=== PATIENT | female | born 1975 | race Caucasian/White ===

== ENCOUNTER 2018-09-03 10:17 | Day surgery (SDC) | payer OTHER, SELFPAY ==
[2018-09-03] VITALS (11 sets, daily range): BP systolic 107–140; BP diastolic 46–99; PULSE 66–109; RESP 16–18; TEMP 36.4–37.2; O2SAT 92–100; BMI 34.0; BMI 34.2
[2018-09-03 10:42] LABS: Internal QC Validated? YES +Cl - CLEAR BKGD; Pregnancy, Urine Negative Negative
[2018-09-03 11:04] LABS: Hematocrit 38.7 % (37-47); Hemoglobin 12.7 g/dl (12.0-15.0); Mean Corp Hgb Conc 32.8 g/gl (32-36); Mean Corpuscular Volume 85.4 fL (81-99); Mean Platelet Vol. 9.3 fl (6.2-12.0); Platelet Count 235 K/mm3 (150-450); RBC Distribution Width CV 13.5 % (11.6-14.6); RBC Distribution Width SD 42.2 fl (35.1-43.9); Red Blood Count 4.53 M/mm3 (4.2-5.4); White Blood Count 6.2 K/mm3 (4.4-11.0)
[2018-09-03 11:06] LABS: Scan Indicated on CBC? Y/N NO
[2018-09-03 11:35] LABS: Bedside Glucose 89 mg/dL (70-110)
[2018-09-03] MEDS: Phenazopyridine 95 MG Tablet 190 MG PO (11:46)
[2018-09-03] MEDS: Celecoxib 200 MG Capsule 400 MG PO (11:46)
[2018-09-03] MEDS: Acetaminophen 500 MG Tablet 1000 MG PO (11:47)
[2018-09-03] MEDS: Scopolamine 1mg/72hr Patch 1 PATCH TRANSDERM. (11:47)
[2018-09-03] MEDS: Gabapentin 600 MG Tablet PO (11:47)
[2018-09-03] MEDS: Enoxaparin 40 MG/0.4 ML Syringe SC (11:50)
--- NOTE | 2018-09-03 13:25 | HYST_PTH ---
PATIENT: PAUL QUINTANA [place] [facility] [place][id number] AGE/SX: 42/F ROOM: RE09/03/[address]: Dr. Lilia Pillai, MDDOB: 1975 BED: DIS: 09/04/2018 SPEC #: [id number] RECD: 09/03/18 16:22 STATUS: JESSE TICO #: [id number] JACQUI: 09/03/18 13:[address]: Lilia Pillai DEPT: SURGICAL PATHOLOGY RECD BY: Pete Zuluaga ENTERED: 09/04/18 08:03 SP TYPE: HYSTERECT OTHR DR: No Primary Care Phys Tissues: Uterus, NOS Procedures: Special Stain Group II Mucicarmine Stain (control) Surgery Specimen Level V HEADER OPERATION: Laparoscopic total hysterectomy, bilateral salpingectomy PRE-OP DIAGNOSIS: Abnormal uterine bleeding TISSUE SUBMITTED: Uterus, cervix, bilateral fallopian tubes, left ovary MICROSCOPIC DIAGNOSIS Uterus, cervix, bilateral fallopian tubes, left ovary: Cervix - chronic cystic cervicitis. Endometrium - early secretory endometrium. Myometrium - intramural and cervical leiomyomas (3 cm in greatest dimension). - Focal adenomyosis. Bilateral fallopian tubes - no pathologic diagnosis. Left ovary - simple mucinous cystadenoma (6 cm in greatest dimension). See comment. COMMENT Mucin stain with matched control was also used in the evaluation of the specimen. Case has been reviewed in consultation with Dr. Winkler who concurs with the above diagnosis. IDC:AM MICROSCOPIC DESCRIPTION Slides are reviewed. GROSS DESCRIPTION Received in fixative is one container labeled with the patient's name and designated uterus, cervix, bilateral fallopian tubes, left ovary. The specimen consists of a hysterectomy specimen consisting of uterus with cervix, detached ovary with adjacent portion of fallopian tube without fimbrial end identified as left and detached right fallopian tube with fimbrial end and also detached portion of fimbrial end most likely belong to left fallopian tube. The uterus with cervix weighs 143 gm and measures 12 x 7 x 6 cm. The serosal surface anteriorly is focally ragged. The ectocervical mucosa is unremarkable. The external os is circular in contour. The endocervical canal measures up to 5.5 cm in length and the endocervical mucosa is smiley, glistening and unremarkable. Sections of the cervix reveal a smiley, nodular mass measuring 3 cm in greatest dimension. The endometrial cavity is narrow and measures 5 cm in length and up to 2 cm in width. The endometrium is smiley, glistening without any mass lesion and measures 0.1 cm in thickness. Sections of the uterine wall reveal multiple intramural nodular masses, the largest measuring 2.5 cm in greatest dimension. The uninvolved uterine wall measures up to 2.5 cm in thickness. Sections of the nodules reveal smiley whorled cut surfaces without areas of hemorrhage, necrosis and cystic degeneration. The right fallopian tube measures 4.5 cm in length and 0.6 cm in diameter. The fimbrial end is identified. Sections reveal unremarkable cut surfaces. The left fallopian tube measures 3 cm in length and 0.4 cm in diameter. It is focally adherent to the adjacent ovary. The detached fimbrial end measures 2 x 1 x 0.5 cm. The soft to cystic, previously partially opened ovary measures 6 x 4 x 2 cm. Sections show multiloculated cysts occupying almost entire ovary. No papillations are identified. The cyst wall measures 0.1 to 0.2 cm in thickness. Manufacturing Coordinator sections are submitted in 14 cassettes as follows: 1 - anterior cervix, 2 - posterior cervix, 3 & 4 - anterior uterine wall, 5 & 6 - posterior uterine wall, 7 - small intramural nodular masses, 8 - largest uterine intramural mass, 9 - cervical intramural mass, 10 - right fallopian tube, 11 - left fallopian tube and ovary, 12-14 - more sections left ovary. / BANDAR:jose 09/04/18 TC:1 CPT: 10937, 85233
[2018-09-03] MEDS: Lidocaine/D5W 2,000 MG/250 ML IV.SOLN 29.52 MG IV (13:40)
[2018-09-03] MEDS: Bupivacaine Mpf 0.5% 30 ML VIAL (14:45)
[2018-09-03] MEDS: Ondansetron 4 MG/2 ML Vial IV (15:53)
--- NOTE | 2018-09-03 15:53 | PCM.OPRPT ---
Report of Operation Date of Procedure: 09/03/18 Pre-Operative Diagnosis: AUB, Post-Operative Diagnosis: AUB, Left ovarian cyst Surgery/Procedure Performed:: TLH, LSO, Right Salpingectomy, Cystoscopy Description of Surgical Findings:: Large Left ovarian cyst, Uterus adherent to anterior abdominal wall. Right ovary normal. hides inspector: Zarina Angeles Type of Anesthesia:: General Specimen's removed: uterus, Cervix, Bilateral tubes, Left ovary and cyst Drains: eldridge Estimated Blood Loss (mL): 100 Fluids Replaced: 1500 Description of Procedure: Patient take to OR and prepped and draped in usual sterile fashion in dorsal lithotomy position with her arms tucked in a neurologically safe and neutral position. The uterus sounded to 13cm. The Vcare uterine manipulator was sutured into place at 3/9:00 position and eldridge were placed. Attention was turned to the abdomen. All port sites were infiltrated with .5% marcaine before the incisions were made. The anterior abdominal wall was tented up with towel clamps and using a direct entry approach a 5 mm supraumbilical port was placed. Intraperitoneal placement was confirmed with the laparoscope and the pneumoperitoneum was created. The patient was placed in Trendelenburg and 5 mm right and left lower quadrant ports were placed under direct visualization. Air seal rapid insufflator was used. The bowel was swept away. Right Ovary appeared normal. Left ovary with a large approx 7cm cyst. Uterus adherant to anterior abdominal wall. using the Monopolor hook the uterus was released from anterior abdominal wall. The mesosalpinx starting at fimbriated end were grasped, clamped, sealed and transected with the Ligasure on the right. The IP ligament was clamped, sealed and transected to remove the ovary on the right with the cyst intact. The round ligaments were divided. The anterior peritoneum was dissected down to create the bladder flap with blunt dissection and the LigaSure. The uterine arteries were isolated, clamped, sealed and cut. There was minimal back bleeding from the uterus. Straight bites on uterine artieries performed to drop them off the cuff. The Vcare was used as guide to create colpotomy using monopolar tip of ligasure. once specimen was removed attention was turned to vaginal portion. The specimen was handed off. The cuff was closed with interrupted 0-vicryl figure of 8 sutures. Cystoscopy was performed bilateral ureters were visualized with good efflux. bladder was intact. eldridge replaced and sponge stick placed in vagina. The pneumoperitoneum was recreated and the cuff and pedicles were hemostatic. Through the Supraumbilical port a 10mm endocatch bag was used to place the right tube/ovary/cyst- it was brought through the umbilical incision after it was ruptured with clear fluid present. Fam was placed over cuff and pedicles. The skin incisions were closed with skin glue and 3-0 monocryl in the port sites. The vaginal sweep was completed by me. Grafts/Implants Used: none Grafts/Implants Used: none - Complications none - Admit VTE Documentation VTE Present on Admission: Yes VTE Mechan Device Prophylaxis: SCD's VTE Pharm Prophylaxis ordered?: Yes
--- NOTE | 2018-09-03 16:14 | DCINST_ITS ---
Discharge Diet: No Restrictions Discharge Activity: Return to Normal Activity, May Not Drive - while taking narcotic pain medications., May Shower Return to work on:: 10/08/18 May shower in (days): 1 February resume sexual activity in: 6-8 weeks Lifting Restrictions: 20 Call your doctor if your incision/area has: Continuous Slow Oozing, Sudden Increased Bleeding, Increased Pain/ Swelling, Increased Redness, Foul Smelling Discharge Call your doctor if you observe: Fever of 101 or Higher, Inability to urinate, Inability to have a bowel movement, Using more than one pad per hour Cleanse incision/area with: - - DO NOT PICK OFF SKIN GLUE- MAY SHOWER, LET SOAP AND WATER RUN OVER INCISION SITES AND DAB DRY Allergies/Adverse Reactions: Allergies latex Allergy (Verified 08/31/18 12:42) Rash oxycodone [From Percocet] Allergy (Verified 08/31/18 12:42) Rash Medications to take at Discharge Docusate Sodium [Colace] 100 mg PO DAILY #30 capsule 09/03/18 Ibuprofen 600 mg PO 4X/DAY PRN PRN #60 tablet 09/03/18 SimETHICONE [Mylicon] 80 mg PO 4X/DAY #30 tablet 09/03/18 The following prescriptions were given: Docusate Sodium [Colace] 100 mg PO DAILY #30 capsule Ibuprofen 600 mg PO 4X/DAY PRN PRN #60 tablet PRN Reason: Pain SimETHICONE [Mylicon] 80 mg PO 4X/DAY #30 tablet Orders to be completed after discharge: Type & Screen Time Frame: 09/03/18, Location: None Selected Primary Care Physician: Care Physician,No Primary [Primary Care Provider] - Test Results: Test results from this visit will be discussed in further detail at your follow- up appointment, if applicable. Please Follow Up With: Lilia Pillai MD When: SCHEDULED IN 2 WEEKS
[2018-09-03] MEDS: Lactated Ringers 1,000 ML 75 ML IV (17:39)
[2018-09-03] MEDS: Ibuprofen 600 MG Tablet PO (23:07)
[2018-09-04 03:14] VITALS: BP 110/69; PULSE 73; RESP 18; TEMP 36.6; O2SAT 96
[2018-09-04] MEDS: Ibuprofen 600 MG Tablet PO (05:19)
--- NOTE | 2018-09-04 07:58 | PCM.PN.OB ---
Subjective: pt seen at bedside, doing well. pt reports no pain. denies CP, SOB, dizziness. pt reports voiding w/o difficulty. No vaginal bleeding. Pt tolerating regular diet. pt is ready for dc home. - Physical Exam General: Alert, Oriented x3 Abdomen: Soft, Non Tender, Non-Distended, - - incision sites dry and intact Extremities: No Calf Tenderness Vital Signs Temp Pulse Resp BP Pulse Ox 97.9 F 73 18 110/69 96 09/04/18 03:14 09/04/18 03:14 09/04/18 03:14 09/04/18 03:14 09/04/18 03:14 Oxygen Flow Rate (L/min) 6 Oxygen Delivery Method Room Air Weight: 99.2 kg Body Mass Index (BMI) 34.2 Intake and Output for Last 24 Hours 09/02/18 09/03/18 09/04/18 23:59 23:59 23:59 Intake Total 2983 / 2983 490 / 490 Output Total 1450 / 1450 900 / 900 Balance 1533 / 1533 -410 / -410 Laboratory Tests Past 24 Hrs 09/03/18 09/03/18 09/03/18 10:30 10:42 12:10 WBC 6.2 RBC 4.53 Hgb 12.7 Hct 38.7 MCV 85.4 MCH 28.0 MCHC 32.8 RDW 13.5 RDW Differential 42.2 Plt Count 235 MPV 9.3 Urine Test Negative Blood Type O POSITIVE Antibody Screen NEGATIVE POC Glucose 09/03/18 11:20 POC Glucose 89 Medical Necessity - Tobacco Use Smoking Status: Never smoker Assessment/Plan POD#1, s/p TLH, Right salpingectomy, LSO, cystoscopy- Doing well stayed for observation due to Late end time of operation and patient still waking up after anesthesia. 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
--- NOTE | 2018-09-04 08:01 | PN.OBGYN_ITS ---
Subjective: pt seen at bedside, doing well. pt reports no pain. denies CP, SOB, dizziness. pt reports voiding w/o difficulty. No vaginal bleeding. Pt tolerating regular diet. pt is ready for dc home. - Physical Exam General: Alert, Oriented x3 Abdomen: Soft, Non Tender, Non-Distended, - - incision sites dry and intact Extremities: No Calf Tenderness Vital Signs Temp Pulse Resp BP Pulse Ox 97.9 F 73 18 110/69 96 09/04/18 03:14 09/04/18 03:14 09/04/18 03:14 09/04/18 03:14 09/04/18 03:14 Oxygen Flow Rate (L/min) 6 Oxygen Delivery Method Room Air Weight: 99.2 kg Body Mass Index (BMI) 34.2 Intake and Output for Last 24 Hours 09/02/18 09/03/18 09/04/18 23:59 23:59 23:59 Intake Total 2983 / 2983 490 / 490 Output Total 1450 / 1450 900 / 900 Balance 1533 / 1533 -410 / -410 Laboratory Tests Past 24 Hrs 09/03/18 09/03/18 09/03/18 10:30 10:42 12:10 WBC 6.2 RBC 4.53 Hgb 12.7 Hct 38.7 MCV 85.4 MCH 28.0 MCHC 32.8 RDW 13.5 RDW Differential 42.2 Plt Count 235 MPV 9.3 Urine Test Negative Blood Type O POSITIVE Antibody Screen NEGATIVE POC Glucose 09/03/18 11:20 POC Glucose 89 Medical Necessity - Tobacco Use Smoking Status: Never smoker Assessment/Plan POD#1, s/p TLH, Right salpingectomy, LSO, cystoscopy- Doing well stayed for observation due to Late end time of operation and patient still waking up after anesthesia. 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
[2018-09-04 10:00] VITALS: BP 109/51; PULSE 78; RESP 18; TEMP 37.1; O2SAT 99
--- OUTSIDE RECORDS SUMMARY | 2018-10-29 12:09 | XMS RPT_ITS ---
:1975 Author Organization [facility] Care Team Providers Name Role Phone GLORIA MAJOR (ELOISA) Attending Unavailable GLORIA MAJOR (ASSISTANT RESTAURANT GENERAL MANAGER) Referring Unavailable ANA, GLORIA (ASSISTANT RESTAURANT GENERAL MANAGER) Referring Unavailable NEYHART PIMENTEL, TERE Attending Unavailable ANA, GLORIA (ASSISTANT RESTAURANT GENERAL MANAGER) Referring Unavailable MAJOR, GLORIA (ASSISTANT RESTAURANT GENERAL MANAGER) Referring Unavailable MAJORGLORIA CABALLERO (ASSISTANT RESTAURANT GENERAL MANAGER) Referring Unavailable NEYHART PIMENTEL, TERE Attending Unavailable NEYHART PIMENTEL, TERE Attending Unavailable NEYHART PIMENTEL, TERE Attending Unavailable NEYHART PIMENTEL, TERE Attending Unavailable Neyhart-Pimentel, Tere Attending Unavailable Neyhart-Pimentel, Tere Referring Unavailable Primay Care Physicia, No Primary Care Unavailable PROBLEMS PROBLEMS DATE TYPE CONDITION / CODE ATTENDING STATUS SOURCE 07/22/2018 Active Other abnormal and NA Active [facility] inconclusive [place] findings on Repository diagnostic imaging of breast / R92.8(ICD-10) 07/08/2018 Active Excessive and NA Active [facility] frequent [place] menstruation with Repository irregular cycle / N92.1(ICD-10) 07/08/2018 Active Encounter for NA Active [facility] screening [place] mammogram for Repository malignant neoplasm of breast / Z12.31(ICD-10) PROCEDURES PROCEDURES No Procedure Records FoundRESULTS RESULTS PROGRESS Observed: 09/16/2018 Status: COMPLETED Source: [place] 10:55 AM [facility] REPOSITORY HNO ID: [id number] Author: Tere Pimentel Service: (none) Author Type: Physician Type: Progress Notes Filed: 09/16/2018 11:56 AM Note Text: SUBJECTIVE: 42 year old female presents for 2 week post-op exam. Doing well- no fevers, vaginal bleeding, difficulty with bm or voiding. OBJECTIVE: Incision: Dry and intact, without redness- supraumbilical incision with slight erythema but no signs of infection. Abdomen: Soft, Non-tender and No palpable masses PLAN: RTO for 6 week check I have reviewed and updated past medical and surgical history, medications and allergies. Tere Pillai MD CNOV Observed: 09/16/2018 Status: COMPLETED Source: [place] 10:50 AM [facility] REPOSITORY Office Visit (WOOB) KIZZY BATES ([id number]) 1975 F Date Time Provider Department 09/16/18 10:50 AM TERE FERNANDEZ [place] During your visit today, we recorded the following information about you: Blood pressure Weight 120/80 97.1 kg Tere Pillai MD 09/16/2018 11:56 AM Signed SUBJECTIVE: 42 year old female presents for 2 week post-op exam. Doing well- no fevers, vaginal bleeding, difficulty with bm or voiding. OBJECTIVE: Incision: Dry and intact, without redness- supraumbilical incision with slight erythema but no signs of infection. Abdomen: Soft, Non-tender and No palpable masses PLAN: RTO for 6 week check I have reviewed and updated past medical and surgical history, medications and allergies. Tere Pillai MD Referring Provider: SELF [200] Allergies As of Date: 09/16/2018 Noted Allergy Reaction LATEX 04/25/2015 2 - Rash PERCOCET (OXYCODONE-ACETAMINOPHEN)04/25/2015 2 - Rash 11 - Vomiting Date Reviewed: 09/16/2018 Reviewed by: Kathrin Van Tuan Ma - Fully Assessed Reason for Visit: Post-Op Visit [1236] Primary Visit Diagnosis:Post-operative state [Z98.890] Prescriptions as of 09/16/2018 Sig: MISOPROSTOL 200 MCG TABLET Take two tablets PO night bef* Patient not taking: Reported on 09/11/2018 PHENAZOPYRIDINE 200 MG TABLET Take 1 tablet by mouth three * Problem List As Of Date 09/16/2018 Noted Resolved Constitutional obesity [E66.8] INVALID FOR* SVT (supraventricular tachycardia) (HCC) [I47.1]INVALID FOR* Disposition: Return in about 4 weeks (around 10/14/2018). Follow-up and Disposition History Recorded Letter Text Tere Pimentel MD [facility] [place], [place] [address] 09/16/2018 RE: Kizzy Bates : 1975 To Whom It May Concern: Kizzy has been under my care and may return to work with no restrictions on 10/12/2018. Sincerely, Tere Pimentel MD Encounter Status:Closed by TERE PIMENTEL MD on 09/16/18 Observed: 09/11/2018 Status: F Source: [place] URINE CULTURE 10:30 AM [facility] REPOSITORY Sp. Request/Comment: - Specimen received in preservative Culture Result - <10,000 CFU/ml Lactose positive gram negative bacilli --> ABNORMAL ALERT Insignificant colony count. No further workup. --> ABNORMAL ALERT >=100,000 CFU/ml Normal urogenital christen Performed By: #### URCUL #### [facility] [address] [place], [place] [address] PROGRESS Observed: 09/11/2018 Status: COMPLETED Source: [place] 10:23 AM [facility] REPOSITORY HNO ID: [id number] Author: Tere Pimentel Service: (none) Author Type: Physician Type: Progress Notes Filed: 09/11/2018 11:02 AM Note Text: Would you like a collection officer present for your visit today? No Bernice Albarado Ma PROGRESS Observed: 09/11/2018 Status: COMPLETED Source: [place] 10:12 [facility] REPOSITORY HNO ID: [id number] Author: Tere Pimentel Service: (none) Author Type: Physician Type: Progress Notes Filed: 09/11/2018 11:02 AM Note Text: SUBJECTIVE: 42 year old female presents for a post-op exam. Pt reports pain at infraumbilical incision site- no fevers, nausea or vomiting. Pt also reports mild dysuria. Scant pink vaginal discharge. Overall doing well. OBJECTIVE: Incision: Dry and intact, without redness- no induration. No signs of infection. Abdomen: Soft, No palpable masses and mild tenderness- appropriate Vaginal: yadira discharge, cuff intact PLAN: RTO 1 weeks, Prescription given Bactrim and pyridium given ?? UTI- culture sent. Increase PO fluids I have reviewed and updated past medical and surgical history, medications and allergies. Tere Pillai MD CNOV Observed: 09/11/2018 Status: COMPLETED Source: [place] 10:10 AM [facility] REPOSITORY Office Visit (WOOB) KIZZY BATES ([id number]) 1975 F Date Time Provider Department 09/11/18 10:10 AM TERE FERNANDEZ [place] During your visit today, we recorded the following information about you: Blood pressure Weight 108/68 97.9 kg Tere Pillai MD 09/11/2018 11:02 AM Signed SUBJECTIVE: 42 year old female presents for a post-op exam. Pt reports pain at infraumbilical incision site- no fevers, nausea or vomiting. Pt also reports mild dysuria. Scant pink vaginal discharge. Overall doing well. OBJECTIVE: Incision: Dry and intact, without redness- no induration. No signs of infection. Abdomen: Soft, No palpable masses and mild tenderness- appropriate Vaginal: yadira discharge, cuff intact PLAN: RTO 1 weeks, Prescription given Bactrim and pyridium given ?? UTI- culture sent. Increase PO fluids I have reviewed and updated past medical and surgical history, medications and allergies. MD Tere Ernandez MD 09/11/2018 11:02 AM Signed Would you like a collection officer present for your visit today? No Bernice Albarado Ma Referring Provider: SELF [200] Allergies As of Date: 09/11/2018 Noted Allergy Reaction LATEX 04/25/2015 2 - Rash PERCOCET (OXYCODONE-ACETAMINOPHEN)04/25/2015 2 - Rash 11 - Vomiting Date Reviewed: 09/11/2018 Reviewed by: Bernice Albarado Ma - Fully Assessed Primary Visit Diagnosis:Dysuria [R30.0] Other Visit Diagnosis:Post-operative state [Z98.890] Order(s):UA DIP, URINE (POC) [0734483] Order #: [id number]. #:[id number] URINE CULTURE [SQURCUL] Order #: [id number] phenazopyridine (PYRIDIUM) 200 mg tabletTake 1 tablet by mouth three times daily as needed.Disp: 6 tabletRfl: 0 sulfamethoxazole-trimethoprim (BACTRIM DS) 800-160 mg per tabletTake 1 tablet by mouth twice daily for 3 days. FOR 3 DAYS.Disp: 6 tabletRfl: 0 Prescriptions as of 09/11/2018 Sig: PHENAZOPYRIDINE 200 MG TABLET Take 1 tablet by mouth three * SULFAMETHOXAZOLE 800 MG-TRIME* Take 1 tablet by mouth twice * MISOPROSTOL 200 MCG TABLET Take two tablets PO night bef* Patient not taking: Reported on 09/11/2018 Problem List As Of Date 09/11/2018 Noted Resolved Constitutional obesity [E66.8] INVALID FOR* SVT (supraventricular tachycardia) ([facility]) [I47.1]INVALID FOR* Prescriptions ordered this encounter Disp Refills Start End PHENAZOPYRIDINE 200 MG TABLET 6 ta* 0 09/11/2018 Route: ORAL Sig: Take 1 tablet by mouth three times daily as needed. SULFAMETHOXAZOLE 800 MG-TRIMETHOPRIM* 6 ta* 0 09/11/2018 09/14/2018 Route: ORAL Sig: Take 1 tablet by mouth twice daily for 3 days. FOR 3 DAYS. Encounter Status:Closed by TERE PIMENTEL MD on 09/11/18 DISCHARGE INSTRUCTION Observed: 09/03/2018 Status: F Source: [place] 4:14 PM [facility] REPOSITORY [facility] Medical Records Department [address] [place] [address] Instructions for Home/Discharge Instructions 09/03/18 1613 MR#: [id number] Acct: [id number] Name: KIZZY BATES Rep #: [id number] : 1975 42 From: Tere Pimentel MD PCP: Care Physician, No Primary Status: REG SDC Discharge Diet: No Restrictions Discharge Activity: Return to Normal Activity, May Not Drive - while taking narcotic pain medications., May Shower Return to work on:: 10/08/18 May shower in (days): 1 May resume sexual activity in: 6-8 weeks Lifting Restrictions: 20 Call your doctor if your incision/area has: Continuous Slow Oozing, Sudden Increased Bleeding, Increased Pain/ Swelling, Increased Redness, Foul Smelling Discharge Call your doctor if you observe: Fever of 101 or Higher, Inability to urinate, Inability to have a bowel movement, Using more than one pad per hour Cleanse incision/area with: - - DO NOT PICK OFF SKIN GLUE- MAY SHOWER, LET SOAP AND WATER RUN OVER INCISION SITES AND DAB DRY Allergies/Adverse Reactions: Allergies latex Allergy (Verified 08/31/18 12:42) Rash oxycodone [From Percocet] Allergy (Verified 08/31/18 12:42) Rash Medications to take at Discharge Docusate Sodium [Colace] 100 mg PO DAILY #30 capsule 09/03/18 Ibuprofen 600 mg PO 4X/DAY PRN PRN #60 tablet 09/03/18 SimETHICONE [Mylicon] 80 mg PO 4X/DAY #30 tablet 09/03/18 The following prescriptions were given: Docusate Sodium [Colace] 100 mg PO DAILY #30 capsule Ibuprofen 600 mg PO 4X/DAY PRN PRN #60 tablet PRN Reason: Pain SimETHICONE [Mylicon] 80 mg PO 4X/DAY #30 tablet Orders to be completed after discharge: Type AND Screen Time Frame: 09/03/18, Location: None Selected Primary Care Physician: Care Physician,No Primary [Primary Care Provider] - Test Results: Test results from this visit will be discussed in further detail at your follow-up appointment, if applicable. Please Follow Up With: Tere Pillai MD When: SCHEDULED IN 2 WEEKS 09/03/18 1614 <Electronically signed by Tere Pimentel MD> Date Tere Pillai MD CC: No Primary Care Physician OPERATIVE REPORT Observed: 09/03/2018 Status: F Source: [place] 4:01 PM [facility] REPOSITORY [facility] Medical Records Department [address] [place] [address] [place] [address] Operative Report 09/03/18 1553 MR#: [id number] Acct: [id number] Name: KIZZY BATES Rep #: [id number] : 1975 42 From: Tere Pimentel MD PCP: Care Physician, No Primary Status: REG [facility] Y Location: [place] [address] Report of Operation Date of Procedure: 09/03/18 Pre-Operative Diagnosis: AUB, Post-Operative Diagnosis: AUB, Left ovarian cyst Surgery/Procedure Performed:: TLH, LSO, Right Salpingectomy, Cystoscopy Description of Surgical Findings:: Large Left ovarian cyst, Uterus adherent to anterior abdominal wall. Right ovary normal. press loader: Zarina Angeles Type of Anesthesia:: General Specimen's removed: uterus, Cervix, Bilateral tubes, Left ovary and cyst Drains: eldridge Estimated Blood Loss (mL): 100 Fluids Replaced: 1500 Description of Procedure: Patient take to OR and prepped and draped in usual sterile fashion in dorsal lithotomy position with her arms tucked in a neurologically safe and neutral position. The uterus sounded to 13cm. The Vcare uterine manipulator was sutured into place at 3/9:00 position and eldridge were placed. Attention was turned to the abdomen. All port sites were infiltrated with .5% marcaine before the incisions were made. The anterior abdominal wall was tented up with towel clamps and using a direct entry approach a 5 mm supraumbilical port was placed. Intraperitoneal placement was confirmed with the laparoscope and the pneumoperitoneum was created. The patient was placed in Trendelenburg and 5 mm right and left lower quadrant ports were placed under direct visualization. Air seal rapid insufflator was used. The bowel was swept away. Right Ovary appeared normal. Left ovary with a large approx 7cm cyst. Uterus adherant to anterior abdominal wall. using the Monopolor hook the uterus was released from anterior abdominal wall. The mesosalpinx starting at fimbriated end were grasped, clamped, sealed and transected with the Ligasure on the right. The IP ligament was clamped, sealed and transected to remove the ovary on the right with the cyst intact. The round ligaments were divided. The anterior peritoneum was dissected down to create the bladder flap with blunt dissection and the LigaSure. The uterine arteries were isolated, clamped, sealed and cut. There was minimal back bleeding from the uterus. Straight bites on uterine artieries performed to drop them off the cuff. The Vcare was used as guide to create colpotomy using monopolar tip of ligasure. once specimen was removed attention was turned to vaginal portion. The specimen was handed off. The cuff was closed with interrupted 0-vicryl figure of 8 sutures. Cystoscopy was performed bilateral ureters were visualized with good efflux. bladder was intact. eldridge replaced and sponge stick placed in vagina. The pneumoperitoneum was recreated and the cuff and pedicles were hemostatic. Through the Supraumbilical port a 10mm endocatch bag was used to place the right tube/ovary/cyst- it was brought through the umbilical incision after it was ruptured with clear fluid present. Fam was placed over cuff and pedicles. The skin incisions were closed with skin glue and 3-0 monocryl in the port sites. The vaginal sweep was completed by me. Grafts/Implants Used: none Grafts/Implants Used: none - Complications none - Admit VTE Documentation VTE Present on Admission: Yes VTE Mechan Device Prophylaxis: SCD's VTE Pharm Prophylaxis ordered?: Yes 09/03/18 4697 <Electronically signed by Tere Pimentel MD> Date Tere Pillai MD CC: No Primary Care Physician; Tere Pillai MD Signed HYSTERECTOMY SPECIMEN Observed: 09/03/2018 Status: F Source: [place] 1:25 PM [facility] REPOSITORY Patient: KIZZY BATES : 1975 (42/F) Acct Num: [id number] Phys: Tere Pillai MD Unit Num: [id number] Loc: [facility] Specimen: [id number] Received: 09/03/181621 Spec Type: HYSTERECT TISSUES 1 TISSUES: Uterus, NOS COMMENT Mucin stain with matched control was also used in the evaluation of the specimen. Case has been reviewed in consultation with Dr. Winkler who concurs with the above diagnosis. IDC:AM GROSS DESCRIPTION Received in fixative is one container labeled with the patient's name and designated uterus, cervix, bilateral fallopian tubes, left ovary. The specimen consists of a hysterectomy specimen consisting of uterus with cervix, detached ovary with adjacent portion of fallopian tube without fimbrial end identified as left and detached right fallopian tube with fimbrial end and also detached portion of fimbrial end most likely belong to left fallopian tube. The uterus with cervix weighs 143 gm and measures 12 x 7 x 6 cm. The serosal surface anteriorly is focally ragged. The ectocervical mucosa is unremarkable. The external os is circular in contour. The endocervical canal measures up to 5.5 cm in length and the endocervical mucosa is smiley, glistening and unremarkable. Sections of the cervix reveal a smiley, nodular mass measuring 3 cm in greatest dimension. The endometrial cavity is narrow and measures 5 cm in length and up to 2 cm in width. The endometrium is smiley, glistening without any mass lesion and measures 0.1 cm in thickness. Sections of the uterine wall reveal multiple intramural nodular masses, the largest measuring 2.5 cm in greatest dimension. The uninvolved uterine wall measures up to 2.5 cm in thickness. Sections of the nodules reveal smiley whorled cut surfaces without areas of hemorrhage, necrosis and cystic degeneration. The right fallopian tube measures 4.5 cm in length and 0.6 cm in diameter. The fimbrial end is identified. Sections reveal unremarkable cut surfaces. The left fallopian tube measures 3 cm in length and 0.4 cm in diameter. It is focally adherent to the adjacent ovary. The detached fimbrial end measures 2 x 1 x 0.5 cm. The soft to cystic, previously partially opened ovary measures 6 x 4 x 2 cm. Sections show multiloculated cysts occupying almost entire ovary. No papillations are identified. The cyst wall measures 0.1 to 0.2 cm in thickness. Desktop Engineer sections are submitted in 14 cassettes as follows: 1 - anterior cervix, 2 - posterior cervix, 3 AND 4 - anterior uterine wall, 5 AND 6 - posterior uterine wall, 7 - small intramural nodular masses, 8 - largest uterine intramural mass, 9 - cervical intramural mass, 10 - right fallopian tube, 11 - left fallopian tube and ovary, 12-14 - more sections left ovary. / BANDAR:jose 09/04/18 TC:1 CPT: 69443, 39819 HEADER OPERATION: Laparoscopic total hysterectomy, bilateral salpingectomy PRE-OP DIAGNOSIS: Abnormal uterine bleeding TISSUE SUBMITTED: Uterus, cervix, bilateral fallopian tubes, left ovary MICROSCOPIC DESCRIPTION Slides are reviewed. MICROSCOPIC DIAGNOSIS Uterus, cervix, bilateral fallopian tubes, left ovary: Cervix - chronic cystic cervicitis. Endometrium - early secretory endometrium. Myometrium - intramural and cervical leiomyomas (3 cm in greatest dimension). - Focal adenomyosis. Bilateral fallopian tubes - no pathologic diagnosis. Left ovary - simple mucinous cystadenoma (6 cm in greatest dimension). See comment. Signed David John 09/07/18 <signature on file> Performed By: #### PHYST #### [facility] [address] [place], [place], [id number] TYPE AND SCREEN Collected: 09/03/2018 Status: F Source: [place] 12:10 PM [facility] REPOSITORY Order Comment: Reason for Type AND Screen/Red Cells: SURGERY Surgery Date: 09/03/18 Time: 1242 Type of Surgery: HYSTERECTOMY TYPE CODE TESTS RESULT OUT OF RANGE REFERENCE UNITS LAB B10.0800 O Normal BLOOD TYPE GEL POSITIVE LAB B100.4000 Normal Antibody NEGATIVE Screen Performed By: #### B101.7450 #### [facility] [address] [facility]. [place], [place], [id number] BEDSIDE GLUCOSE Collected: 09/03/2018 Status: F Source: [place] 11:20 AM [facility] REPOSITORY TYPE CODE TESTS RESULT OUT OF RANGE REFERENCE UNITS LAB L501.080 70-110 mg/dL Normal BEDSIDE GLU 89 Result Comment: MANAGEMENT OF PATIENT CARE PER NURSING PROTOCOL Performed By: #### L501.080 #### [facility] Point of Care [address] [facility] [address] [place], [place] [id number] CBC-COMPLETE BLOOD CNT Collected: 09/03/2018 Status: F Source: [place] NO DIFF 10:42 AM [facility] REPOSITORY Order Comment: Reason for Laboratory Test PRE OP TYPE CODE TESTS RESULT OUT OF RANGE REFERENCE UNITS LAB L100.1000 4.4-11.0 K/mm3 Normal WBC 6.2 LAB L100.1200 4.2-5.4 M/mm3 Normal RBC 4.53 LAB L100.1300 12.0-15.0 g/dl Normal HGB 12.7 LAB L100.1400 37-47 % Normal HCT 38.7 LAB L100.1500 81-99 fL Normal MCV 85.4 LAB L100.1600 27.0-32.0 pg Normal MCH 28.0 LAB L100.1700 32-36 g/gl Normal MCHC 32.8 LAB L100.1810 11.6-14.6 % Normal RDW CV 13.5 LAB L100.1820 35.1-43.9 fl Normal RDW SD 42.2 LAB L100.1900 150-450 K/mm3 Normal PLT 235 LAB L100.2000 6.2-12.0 fl Normal MPV 9.3 Performed By: #### L100.0500 #### [facility] [address] [facility] [address]. [place], [place], [id number] ,URINE Collected: 09/03/2018 Status: F Source: [place] 10:30 AM [facility] REPOSITORY Order Comment: Reason for Laboratory Test PRE OP TYPE CODE TESTS RESULT OUT OF REFERENCE UNITS RANGE LAB L400.8000 Negative Normal HCGUQUAL Negative Result Comment: Very dilute urine specimens, as indicated by a low specific gravity, may not contain office machines sales representative levels of hCG. If is still suspected, a first morning urine specimen should be collected 48 hours later and tested. Performed By: #### L400.7600 #### [facility] [address] [place], [address] SURGICAL PATHOLOGY Observed: 08/14/2018 Status: F Source: [place] 12:15 PM [facility] [place] REPOSITORY Specimen originated from [facility] Specimen #: [id number] Submitting Physician: TERE PIMENTEL MD FINAL DIAGNOSIS Endometrium, biopsy - Proliferative endometrium and fragments of benign endocervical epithelium. P 08/17/2018 Maggie Sterling M.D. (Electronic Signature) SPECIMEN SUBMITTED A: ENDOMETRIAL, BIOPSY CLINICAL DATA abnormal uterine bleeding GROSS DESCRIPTION A. Received in formalin are multiple smiley, soft feathery segments of tissue aggregating to 2.0 x 1.5 x 0.3 cm. Totally submitted in one cassette. Gross examination performed at [facility], [address] [place] [address] 08/15/2018 1:08:08 AM Date of Report: 08/17/2018 Date of Procedure: 08/14/2018 Date of Receipt: 08/14/2018 Submitted by: TERE PIMENTEL MD Location: [facility] Diagnostic interpretation performed at [facility], [facility] [place] [address]. HISTORY PHYSICAL Observed: 08/14/2018 Status: COMPLETED Source: [place] 12:13 PM [facility] REPOSITORY HNO ID: [id number] Author: Tere Pimentel Service: (none) Author Type: Physician Type: HANDP Filed: 08/14/2018 12:19 PM Note Text: Kizzy Bates is a 42 year old female who presents for AUB. Pt reports since getting tubal ligation done about two years ago her menses are irregular, painful and heavy. Pt reports will pass large clots. Will have to change protection less than every hour at some times. Pt reports feels tired and exhausted with menses. Pt reports also has pain with intercourse sometimes. Pt wanted to try MIRENA however cost was too much. Pt declines other hormonal options at this time. Pt would like to proceed with hysterectomy. PAST MEDICAL HISTORY Diagnosis Date - Leg fracture, left - Obesity - SVT (supraventricular tachycardia) (HCC) PAST SURGICAL HISTORY Procedure Laterality Date - CC ABLATION SVT PAT - DELIVERY ONLY 1998 , low transverse - DELIVERY ONLY 2007 , low transverse - TREAT LOWER LEG FRACTURE - TUBAL LIGATION HX 2014 laparoscopic FAMILY HISTORY Problem Relation Age of Onset - Breast Cancer Mother and Uterine - Diabetes Father - Cancer Maternal Grandmother Lung and Brain - COPD Maternal Grandmother Social History Marital status: Spouse name: Loyd Years of education: Number of children: 2 Occupational History 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 Allergies As of Date: 08/14/2018 Allergen Noted Reaction LATEX 04/25/2015 Rash PERCOCET [OXYCODONE-ACETAMINOPHEN]04/25/2015 Rash and Vomiting Fully Assessed 08/14/2018 REVIEW OF SYSTEMS Abdomen: no pain Bladder: no dysuria .. Expanded ROS: GENERAL: No weight loss, malaise or fevers Allergies and current medication updated:Yes EXAM: BP 112/66 Wt 216 lb (98.0kg) LMP 08/07/2018 GENERAL: pleasant, female in no apparent distress HEENT: Normocephalic and atraumatic NECK: full range of motion DERMATOLOGY: Normal, without lesions, non-icteric and non-hirsute CARDIAC: regular rate and rhythm CHEST: Normal inspiratory effort ABDOMEN: soft, non-tender and no masses PELVIC: external genitalia normal, normal Bartholin's glands, urethra, Wakeeney's glands, no vulvar lesions, no cervical lesions, good vaginal support, physiologic discharge present, normal appearing perineal body and perianal region NEURO: alert and oriented x3,exam grossly non-focal EXTREMITIES: normal Overall impression: uterus enlarged at 12.9cm, endometrial thickness 11.1mm. The endometrium appears heterogenous which can be seen in Adenomyosis there is a small 3.1cm intramural fibroid in lower segment of uterus. Right ovary appears normal left ovary not visualized no free fluid. Follow- up: f/u as clinically indicated. _ Indication: Menorrhagia. _ History: Last menstrual period: 07/08/2018. 2th day of cycle. Gynecological History: Contraception: sterilization. _ Gynecological Ultrasonography: Uterus: normal, axial. Size: Longitudinal 129 mm. Anterio- posterior 48 mm. Transverse 53 mm. Volume: 171.8 ml. Fibroids: Fibroid 1: Size: 24 mm x 22 mm x 31 mm. Type: posterior. Position: lower ?uterine segment. Endometrium: endometrial cavity could not be seen clearly. Endometrium thickness total: 11.3 mm. Right Ovary: normal. Visible. Morphology: normal morphology. Right Ovary size: 22 mm x 15 mm x 19 mm. Volume: 3.3 ml. Left Ovary: subvisualized. Method: transvaginal ultrasound, transabdominal ultrasound, color Doppler, 2 D, 3 D. View: suboptimal - the uterus was not seen clearly because of its axial position. Performed by:Nell Lam RDMS Read by:Tere Jiménez MD ASSESSMENT AND PLAN: Encounter Diagnosis ICD-10-CM 1. Abnormal uterine bleeding (AUB) N93.9 ENDOMETRIAL BIOPSY SURGICAL PATHOLOGY 2. Pre-op testing Z01.818 HCG QUAL UR B/O 3. Surgical procedure reviewed with patient. TLH, Bilateral salpingectomy, Cysto reviewed- DECLINES hormones and can't afford MIRENA IUD. Pt is not good ABLATION candidate. Pt has been counseled on risks/benefits and alternatives of surgery including but not limited to anesthesia, bleeding, infection, injury to pelvic structures including bowel, bladder, ureters and vessels. Pt wishes to proceed with surgery at this time. CONSENT obtained ERAS PROTOCOL reviewed and orders signed. Pt declines Rx for narcotics after procedure. Tere Pillai MD PROGRESS Observed: 08/14/2018 Status: COMPLETED Source: [place] 10:14 AM [facility] REPOSITORY [facility] ID: [id number] Author: Tere Pimentel Service: (none) Author Type: Physician Type: Progress Notes Filed: 08/14/2018 12:19 PM Note Text: Custom Harvester offered: Patient declines. Kizzy Bates is a 42 year old female who presents today for an endometrial biopsy for abnormal uterine bleeding. test: negative UNIVERSAL PROTOCOL / SAFETY CHECKLIST Procedure to be performed: EMB Sign in Communication: Completed Time Out: Team Confirms the Correct Patient, Correct Procedure, Correct Site and Site Marking, Correct Position (if applicable), Prep and Dry Time (if applicable). Time: Affirmation of Time Out: YES Sign Out Discussion: Completed PROCEDURE: EXTERNAL GENITALIA: Normal in appearance without lesions VAGINA: Normal in appearance without lesions BIOPSY: Speculum placed into the vagina with excellent visualization of the cervix. Cervix cleaned with betadine. Anterior lip of cervix grasped with single toothed tenaculum. Uterus sounded to 9 cm. Pipelle inserted into the uterus without difficulty and endometrial biopsy obtained. Specimen labeled and sent to pathology. Hemostasis achieved. Procedure Summary: Patient tolerated procedure well. ASSESSMENT: abnormal uterine bleeding PLAN: Specimens labeled and sent to Pathology. Will notify patient of results in 1-2 weeks. Tere Pillai MD CNOV Observed: 08/14/2018 Status: COMPLETED Source: [place] 10:10 AM [facility] REPOSITORY Office Visit (WOOB) KIZZY BATES ([id number]) 1975 F Date Time Provider Department 08/14/18 10:10 AM TERE FERNANDEZ [place] During your visit today, we recorded the following information about you: Blood pressure Weight Last Period 112/66 98 kg 08/07/18 Tere Pillai MD 08/14/2018 12:19 PM Signed Custom Harvester offered: Patient declines. Kizzy M Jana is a 42 year old female who presents today for an endometrial biopsy for abnormal uterine bleeding. test: negative UNIVERSAL PROTOCOL / SAFETY CHECKLIST Procedure to be performed: EMB Sign in Communication: Completed Time Out: Team Confirms the Correct Patient, Correct Procedure, Correct Site and Site Marking, Correct Position (if applicable), Prep and Dry Time (if applicable). Time: Affirmation of Time Out: YES Sign Out Discussion: Completed PROCEDURE: EXTERNAL GENITALIA: Normal in appearance without lesions VAGINA: Normal in appearance without lesions BIOPSY: Speculum placed into the vagina with excellent visualization of the cervix. Cervix cleaned with betadine. Anterior lip of cervix grasped with single toothed tenaculum. Uterus sounded to 9 cm. Pipelle inserted into the uterus without difficulty and endometrial biopsy obtained. Specimen labeled and sent to pathology. Hemostasis achieved. Procedure Summary: Patient tolerated procedure well. ASSESSMENT: abnormal uterine bleeding PLAN: Specimens labeled and sent to Pathology. Will notify patient of results in 1-2 weeks. MD Kathrin Ernandez Van Tuan Ma 08/14/2018 10:15 AM Signed YOUR RECOVERY After your biopsy you may have: ? Vaginal bleeding (less than a normal menstrual period) ? Mild cramping Do NOT put anything in the vagina for 1 week after your endometrial biopsy. This includes: ? tampons ? douches ? and refraining from having sexual intercourse If you have any discomfort, you may take an over the counter pain medication (motrin, advil, ibuprofen, tylenol, etc). If this does not relieve your discomfort, contact the office. It is okay to wear a sanitary pad until the discharge and spotting stops. RISKS Although problems seldom occur with endometrial biopsies, there can be some complications. You may feel faint during and shortly after the procedure as well as have some bleeding after the procedure. There is also a risk of infection after the procedure. These complications are rare and can be easily treated. You should contact you doctor is you have any of the following: ? Heavy bleeding (more than your normal period) ? Bleeding with clots ? Severe abdominal pain ? Fever (more than 100.4F) ? Foul smelling vaginal discharge RESULTS We will have the results of your biopsy in 1-2 weeks. If you do not hear the results of your biopsy after 2 weeks, please contact the office for the results. If you have any additional questions or concerns please do not hesitate to contact the office. Tere Pillai MD 08/14/2018 12:19 PM Signed Kizzy Bates is a 42 year old female who presents for AUB. Pt reports since getting tubal ligation done about two years ago her menses are irregular, painful and heavy. Pt reports will pass large clots. Will have to change protection less than every hour at some times. Pt reports feels tired and exhausted with menses. Pt reports also has pain with intercourse sometimes. Pt wanted to try MIRENA however cost was too much. Pt declines other hormonal options at this time. Pt would like to proceed with hysterectomy. 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 Allergies As of Date: 08/14/2018 Allergen Noted Reaction LATEX 04/25/2015 Rash PERCOCET [OXYCODONE-ACETAMINOPHEN]04/25/2015 Rash and Vomiting Fully Assessed 08/14/2018 REVIEW OF SYSTEMS Abdomen: no pain Bladder: no dysuria .. Expanded ROS: GENERAL: No weight loss, malaise or fevers Allergies and current medication updated:Yes EXAM: BP 112/66 Wt 216 lb (98.0kg) LMP 08/07/2018 GENERAL: pleasant, female in no apparent distress HEENT: Normocephalic and atraumatic NECK: full range of motion DERMATOLOGY: Normal, without lesions, non-icteric and non-hirsute CARDIAC: regular rate and rhythm CHEST: Normal inspiratory effort ABDOMEN: soft, non-tender and no masses PELVIC: external genitalia normal, normal Bartholin's glands, urethra, Wakeeney's glands, no vulvar lesions, no cervical lesions, good vaginal support, physiologic discharge present, normal appearing perineal body and perianal region NEURO: alert and oriented x3,exam grossly non-focal EXTREMITIES: normal Overall impression: uterus enlarged at 12.9cm, endometrial thickness 11.1mm. The endometrium appears heterogenous which can be seen in Adenomyosis there is a small 3.1cm intramural fibroid in lower segment of uterus. Right ovary appears normal left ovary not visualized no free fluid. Follow- up: f/u as clinically indicated. Indication: Menorrhagia. History: Last menstrual period: 07/08/2018. 2th day of cycle. Gynecological History: Contraception: sterilization. Gynecological Ultrasonography: Uterus: normal, axial. Size: Longitudinal 129 mm. Anterio- posterior 48 mm. Transverse 53 mm. Volume: 171.8 ml. Fibroids: Fibroid 1: Size: 24 mm x 22 mm x 31 mm. Type: posterior. Position: lower ?uterine segment. Endometrium: endometrial cavity could not be seen clearly. Endometrium thickness total: 11.3 mm. Right Ovary: normal. Visible. Morphology: normal morphology. Right Ovary size: 22 mm x 15 mm x 19 mm. Volume: 3.3 ml. Left Ovary: subvisualized. Method: transvaginal ultrasound, transabdominal ultrasound, color Doppler, 2 D, 3 D. View: suboptimal - the uterus was not seen clearly because of its axial position. Performed by:Nell aLm RDMS Read by:Tere Jiménez MD ASSESSMENT AND PLAN: Encounter Diagnosis ICD-10-CM 1. Abnormal uterine bleeding (AUB) N93.9 ENDOMETRIAL BIOPSY SURGICAL PATHOLOGY 2. Pre-op testing Z01.818 HCG QUAL UR B/O 3. Surgical procedure reviewed with patient. TLH, Bilateral salpingectomy, Cysto reviewed- DECLINES hormones and can't afford MIRENA IUD. Pt is not good ABLATION candidate. Pt has been counseled on risks/benefits and alternatives of surgery including but not limited to anesthesia, bleeding, infection, injury to pelvic structures including bowel, bladder, ureters and vessels. Pt wishes to proceed with surgery at this time. CONSENT obtained ERAS PROTOCOL reviewed and orders signed. Pt declines Rx for narcotics after procedure. Tere Pillai MD Referring Provider: SELF [[id number]] Allergies As of Date: 08/14/2018 Noted Allergy Reaction LATEX 04/25/2015 2 - Rash PERCOCET (OXYCODONE-ACETAMINOPHEN)04/25/2015 2 - Rash 11 - Vomiting Date Reviewed: 08/14/2018 Reviewed by: Kathrin Vigil Ma - Fully Assessed Reason for Visit: Endometrial Biopsy [7501] Primary Visit Diagnosis:Abnormal uterine bleeding (AUB) [N93.9] Other Visit Diagnoses:Intramural leiomyoma of uterus [D25.1] Pre-op testing [Z01.818] Order(s):HCG QUAL UR B/O [[id number]] Order #: [id number] ENDOMETRIAL BIOPSY [[id number]] Order #: [id number] SURGICAL PATHOLOGY [[id number]] Order #: [id number] Prescriptions as of 08/14/2018 Sig: MISOPROSTOL 200 MCG TABLET Take two tablets PO night bef* Problem List As Of Date 08/14/2018 Noted Resolved Constitutional obesity [E66.8] INVALID FOR* SVT (supraventricular tachycardia) ([facility]) [I47.1]INVALID FOR* Other instructions from your clinician: YOUR RECOVERY After your biopsy you may have: ? Vaginal bleeding (less than a normal menstrual period) ? Mild cramping Do NOT put anything in the vagina for 1 week after your endometrial biopsy. This includes: ? tampons ? douches ? and refraining from having sexual intercourse If you have any discomfort, you may take an over the counter pain medication (motrin, advil, ibuprofen, tylenol, etc). If this does not relieve your discomfort, contact the office. It is okay to wear a sanitary pad until the discharge and spotting stops. RISKS Although problems seldom occur with endometrial biopsies, there can be some complications. You may feel faint during and shortly after the procedure as well as have some bleeding after the procedure. There is also a risk of infection after the procedure. These complications are rare and can be easily treated. You should contact you doctor is you have any of the following: ? Heavy bleeding (more than your normal period) ? Bleeding with clots ? Severe abdominal pain ? Fever (more than 100.4F) ? Foul smelling vaginal discharge RESULTS We will have the results of your biopsy in 1-2 weeks. If you do not hear the results of your biopsy after 2 weeks, please contact the office for the results. If you have any additional questions or concerns please do not hesitate to contact the office. Encounter Status:Closed by TERE PIMENTEL MD on 08/14/18 PROGRESS Observed: 07/22/2018 Status: COMPLETED Source: [place] 11:28 AM [facility] REPOSITORY [facility] ID: [id number] Author: Tere Pimentel Service: (none) Author Type: Physician Type: Progress Notes Filed: 07/22/2018 1:07 PM Note Text: Kizzy Bates is a 42 year old female who presents for discussion or heavy menses. Pt reports since getting tubal ligation done about two years ago her menses are irregular, painful and heavy. Pt reports will pass large clots. Will have to change protection less than every hour at some times. Pt reports feels tired and exhausted with menses. Pt reports also has pain with intercourse sometimes. Pt reports used mirena previously with good results however last time she tried to get one it was denied. Pt reports she would like to try that again. Pt declines OCPs, depo or other hormonal options. 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 No current facility-administered medications for this visit. Allergies As of Date: 07/22/2018 Allergen Noted Reaction LATEX 04/25/2015 Rash PERCOCET [OXYCODONE-ACETAMINOPHEN]04/25/2015 Rash and Vomiting Fully Assessed 07/08/2018 REVIEW OF SYSTEMS Abdomen: cramping with menses. No other concerns Bladder: no dysuria .. Expanded ROS: Negative Fever Allergies and current medication updated:Yes EXAM: BP 112/78 Wt 216 lb (98.0kg) LMP 07/08/2018 GENERAL: pleasant, female in no apparent distress HEENT: Normocephalic, atraumatic and mucus membranes moist NECK: full range of motion DERMATOLOGY: Normal, without lesions, non-icteric and non-hirsute ABDOMEN: soft, non-tender and no masses PELVIC: external genitalia normal, normal Bartholin's glands, urethra, Wakeeney's glands, no vulvar lesions, normal appearing perineal body and perianal region BIMANUAL: anteverted, uterus top normal size, no adnexal masses and Moderate tenderness NEURO: alert and oriented x3,exam grossly non-focal EXTREMITIES: normal ASSESSMENT AND PLAN: Encounter Diagnosis ICD-10-CM 1. Abnormal uterine bleeding (AUB) N93.9 ENDOMETRIAL BIOPSY 2. Enlarged uterus N85.2 3. Intramural leiomyoma of uterus D25.1 4. Dysmenorrhea N94.6 5. Deep dyspareunia N94.12 6. Previous ultrasound was reviewed with patient- suspect adenomyosis- not good ablation candidate. Would prefer MIRENA IUD since she had good success previously vs Hysterectomy with bilateral salpingectomy. I reviewed TLH in detail with patient including all risks and benefits. Pt would like to proceed with hysterectomy if MIRENA is not covered by insurance- she declines all other forms of hormonal therapy. 7. Will do EMB in 2 weeks. 8. OR booking form turned in - will tentatively schedule for TLH, Bilateral salpingectomy and cysto FTFC >25 min with more than 50% of this time spent counseling the patient. Tere Pillai MD CNOV Observed: 07/22/2018 Status: COMPLETED Source: [place] 11:20 AM [facility] REPOSITORY Office Visit (WOOB) KIZZY BATES ([id number]) 1975 F Date Time Provider Department 07/22/18 11:20 AM TERE FERNANDEZ During your visit today, we recorded the following information about you: Blood pressure Weight Last Period 112/78 98 kg 07/08/18 Tere Pillai MD 07/22/2018 1:07 PM Signed Kizzy Bates is a 42 year old female who presents for discussion or heavy menses. Pt reports since getting tubal ligation done about two years ago her menses are irregular, painful and heavy. Pt reports will pass large clots. Will have to change protection less than every hour at some times. Pt reports feels tired and exhausted with menses. Pt reports also has pain with intercourse sometimes. Pt reports used mirena previously with good results however last time she tried to get one it was denied. Pt reports she would like to try that again. Pt declines OCPs, depo or other hormonal options. 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 No current facility-administered medications for this visit. Allergies As of Date: 07/22/2018 Allergen Noted Reaction LATEX 04/25/2015 Rash PERCOCET [OXYCODONE-ACETAMINOPHEN]04/25/2015 Rash and Vomiting Fully Assessed 07/08/2018 REVIEW OF SYSTEMS Abdomen: cramping with menses. No other concerns Bladder: no dysuria .. Expanded ROS: Negative Fever Allergies and current medication updated:Yes EXAM: BP 112/78 Wt 216 lb (98.0kg) LMP 07/08/2018 GENERAL: pleasant, female in no apparent distress HEENT: Normocephalic, atraumatic and mucus membranes moist NECK: full range of motion DERMATOLOGY: Normal, without lesions, non-icteric and non-hirsute ABDOMEN: soft, non-tender and no masses PELVIC: external genitalia normal, normal Bartholin's glands, urethra, Wakeeney's glands, no vulvar lesions, normal appearing perineal body and perianal region BIMANUAL: anteverted, uterus top normal size, no adnexal masses and Moderate tenderness NEURO: alert and oriented x3,exam grossly non-focal EXTREMITIES: normal ASSESSMENT AND PLAN: Encounter Diagnosis ICD-10-CM 1. Abnormal uterine bleeding (AUB) N93.9 ENDOMETRIAL BIOPSY 2. Enlarged uterus N85.2 3. Intramural leiomyoma of uterus D25.1 4. Dysmenorrhea N94.6 5. Deep dyspareunia N94.12 6. Previous ultrasound was reviewed with patient- suspect adenomyosis- not good ablation candidate. Would prefer MIRENA IUD since she had good success previously vs Hysterectomy with bilateral salpingectomy. I reviewed TLH in detail with patient including all risks and benefits. Pt would like to proceed with hysterectomy if MIRENA is not covered by insurance- she declines all other forms of hormonal therapy. 7. Will do EMB in 2 weeks. 8. OR booking form turned in - will tentatively schedule for TLH, Bilateral salpingectomy and cysto FTFC >25 min with more than 50% of this time spent counseling the patient. Tere Pillai MD Referring Provider: SELF [200] Allergies As of Date: 07/22/2018 Noted Allergy Reaction LATEX 04/25/2015 2 - Rash PERCOCET (OXYCODONE-ACETAMINOPHEN)04/25/2015 2 - Rash 11 - Vomiting Date Reviewed: 07/22/2018 Reviewed by: Kathrin Vigil Ma - Fully Assessed Reason for Visit: Follow Up [171] Reason For Visit History Recorded Primary Visit Diagnosis:Abnormal uterine bleeding (AUB) [N93.9] Other Visit Diagnoses:Enlarged uterus [N85.2] Intramural leiomyoma of uterus [D25.1] Dysmenorrhea [N94.6] Deep dyspareunia [N94.12] Order(s):miSOPROStol (CYTOTEC) 200 mcg tabletTake two tablets PO night before procedure and two tablets morning of procedureDisp: 4 tabletRfl: 0 ENDOMETRIAL BIOPSY [[id number]] Order #: [id number] Prescriptions as of 07/22/2018 Sig: MISOPROSTOL 200 MCG TABLET Take two tablets PO night bef* Problem List As Of Date 07/22/2018 Noted Resolved Constitutional obesity [E66.8] INVALID FOR* SVT (supraventricular tachycardia) (HCC) [I47.1]INVALID FOR* Prescriptions ordered this encounter Disp Refills Start End MISOPROSTOL 200 MCG TABLET 4 ta* 0 07/22/2018 Sig: Take two tablets PO night before procedure and two tablets morning of procedure Disposition: Return in about 2 weeks (around 08/05/2018) for emb with DM. Follow-up and Disposition History Recorded Encounter Status:Closed by TERE PIMENTEL MD on 07/22/18 PROGRESS Observed: 07/22/2018 Status: COMPLETED Source: [place] 11:12 AM [facility] REPOSITORY [facility] ID: [id number] Author: Gillian Ford Rdms Service: (none) Author Type: (none) Type: Progress Notes Filed: 07/22/2018 11:12 AM Note Text: Radiology Service Progress Note PATIENT NAME: Kizzy Bates DATE OF SERVICE: July 22, 2018 TIME: 11:12 AM PATIENT IDENTITY VERIFICATION COMPLETED USING TWO (2) METHODS: Patient confirmed name verbally and Date of . PATIENT GENDER DATA: Male PATIENT RELEVANT IMPLANT DATA REVIEWED: Not Applicable RADIOLOGY DEPARTMENT: Ultrasound PERIPHERAL IV DATA: Not applicable SIGNED BY: Gillian Ford Rdms July 22, 2018 11:12 AM CNCO Observed: 07/22/2018 Status: COMPLETED Source: [place] 11:11 AM [facility] REPOSITORY [facility] ID: [id number] Author: Mammography Coordinator Service: (none) Author Type: Physician Type: Letter Filed: 07/23/2018 11:31 PM Note Text: July 22, 2018 PID: [id number] Kizzy Bates [address] [place] [address] Dear Ms. Bates, Your recent breast imaging examination performed on 07/22/2018 showed an area that we believe is probably benign (not cancer). A six month follow-up is recommended to ensure your breast health. Please call [phone] to schedule an appointment for these tests if you have not already done so. Early detection of cancer is very important. We also understand recommendations regarding breast cancer screening are controversial. Please discuss with your primary care provider which strategy is best for you and whether a mammogram is right for you. Your breast images and report will be kept on file here as part of your permanent medical record and are available for your continuing care. Thank you for allowing us to help in meeting your health care needs. Sincerely, Dr. George Interpreting Radiologist [facility] (# mo Follow-up) CNCO Observed: 07/22/2018 Status: COMPLETED Source: [place] 11:10 AM [facility] REPOSITORY HNO ID: [id number] Author: Mammography Coordinator Service: (none) Author Type: Physician Type: Letter Filed: 07/23/2018 11:31 PM Note Text: July 22, 2018 PID: [id number] Kizzy Kirklandshaw [address] [place] [address] Dear Ms. Bates, Your recent breast imaging examination performed on 07/22/2018 showed an area that we believe is probably benign (not cancer). A six month follow-up is recommended to ensure your breast health. Please call [phone] to schedule an appointment for these tests if you have not already done so. Early detection of cancer is very important. We also understand recommendations regarding breast cancer screening are controversial. Please discuss with your primary care provider which strategy is best for you and whether a mammogram is right for you. Your breast images and report will be kept on file here as part of your permanent medical record and are available for your continuing care. Thank you for allowing us to help in meeting your health care needs. Sincerely, Dr. George Interpreting Radiologist [facility] (# mo Follow-up) [facility] Proxly BREAST LTD Observed: 07/22/2018 Status: F Source: [facility] 10:57 AM [facility] REPOSITORY * * *Final Report* * * DATE OF EXAM: Jul 22 2018 10:57AM STAN 0593 - [facility] US BREAST LTD LT / PROCEDURE REASON: Abnormal mammogram * * * * Physician Interpretation * * * * #[id number] - [facility] US BREAST LTD LT ULTRASOUND OF LEFT BREAST: 07/22/2018 HISTORY: Abnormal Mammogram. RESULT: No prior exams were available for comparison. Real-time ultrasound of the left breast was performed. No abnormalities were seen sonographically in the left breast. IMPRESSION: NEGATIVE There is no sonographic evidence of malignancy. Siobhan rangel/tory:07/22/2018 11:12:17 Medical Lab Tech Instructor: Mulu Bradley [facility] Ultrasound BI-RADS: 1 Negative Multiple national specialty organizations have released breast cancer screening guidelines for women at average risk for developing breast cancer - guidelines that are based on both evidence and opinion, yet differ on when to start and how often to screen for breast cancer. With representation from Breast Imaging, Internal Medicine, Women's Health, Family Medicine, and Medical/Surgical Oncology, the [facility] has carefully reviewed the data and reached the following consensus: 1) All women should engage in shared decision-making with their providers to decide when to start and how often to screen; 2) All women should have the opportunity to start screening mammography at age 40; 3) For women ages 45-55, we recommend annual screening mammograms; 4) For women ages 55 and over, we support both the transition from an annual to a biennial interval if this aligns more with patient's values and preferences, or continuation with annual screening; 5) All women should discuss with their providers when to stop screening mammograms. Adjunct Professor Of English: Tory Transcribe Date/Time: Jul 22 2018 10:51A Dictated by : SIOBHAN GEORGE MD This examination was interpreted and the report reviewed and electronically signed by: SIOBHAN GEORGE MD on Jul 22 2018 11:12AM EST [id number] [facility] US BREAST LTD Observed: 07/22/2018 Status: F Source: [facility] 10:52 AM [facility] REPOSITORY * * *Final Report* * * DATE OF EXAM: Jul 22 2018 10:52AM WRU 0594 - [facility] US BREAST LTD RT / PROCEDURE REASON: Abnormal mammogram * * * * Physician Interpretation * * * * #[id number] - [facility] US BREAST LTD RT ULTRASOUND OF RIGHT BREAST: 07/22/2018 HISTORY: Abnormal Mammogram. RESULT: No prior exams were available for comparison. Real-time ultrasound of the right breast was performed. There is a 1.1 cm x 0.7 cm x 0.8 cm lobulated mass with a circumscribed margin in the right breast at 10 o'clock posterior depth. This lobulated mass is hypoechoic with a well-defined boundary and internal echoes. This correlates with mammography findings. IMPRESSION: PROBABLY BENIGN - SHORT TERM INTERVAL FOLLOW-UP RECOMMENDED - FOLLOW-UP RECOMMENDED The 1.1 cm x 0.7 cm x 0.8 cm lobulated mass in the right breast resembles a lymph node and is probably benign. A follow-up mammogram and an ultrasound in 6 months is recommended to demonstrate stability. Siobhan rangel/tory:07/22/2018 11:11:42 Medical Lab Tech Instructor: Gillian Ford [facility] letter sent: # Mo FU Ultrasound BI-RADS: 3 Probably benign finding - short term interval follow-up recommended Multiple national specialty organizations have released breast cancer screening guidelines for women at average risk for developing breast cancer - guidelines that are based on both evidence and opinion, yet differ on when to start and how often to screen for breast cancer. With representation from Breast Imaging, Internal Medicine, Women's Health, Family Medicine, and Medical/Surgical Oncology, the [facility] has carefully reviewed the data and reached the following consensus: 1) All women should engage in shared decision-making with their providers to decide when to start and how often to screen; 2) All women should have the opportunity to start screening mammography at age 40; 3) For women ages 45-55, we recommend annual screening mammograms; 4) For women ages 55 and over, we support both the transition from an annual to a biennial interval if this aligns more with patient's values and preferences, or continuation with annual screening; 5) All women should discuss with their providers when to stop screening mammograms. Adjunct Professor Of English: Tory Transcribe Date/Time: Jul 22 2018 10:34A Dictated by : SIOBHAN GEORGE MD This examination was interpreted and the report reviewed and electronically signed by: SIOBHAN GEORGE MD on Jul 22 2018 11:11AM EST [id number] PROGRESS Observed: 07/22/2018 Status: COMPLETED Source: [place] 10:28 AM [facility] REPOSITORY O ID: [id number] Author: Silvia Melton Service: (none) Author Type: (none) Type: Progress Notes Filed: 07/22/2018 10:28 AM Note Text: Radiology Service Progress Note PATIENT NAME: Kizzy Bates DATE OF SERVICE: July 22, 2018 TIME: 10:28 AM PATIENT IDENTITY VERIFICATION COMPLETED USING TWO (2) METHODS: Patient confirmed name verbally and Date of . PATIENT GENDER DATA: Female. status: : No status: NO. PATIENT RELEVANT IMPLANT DATA REVIEWED: Not Applicable RADIOLOGY DEPARTMENT: [facility] BILATERAL DIAGNOSTIC MAMMOGRAM PERIPHERAL IV DATA: Not applicable SIGNED BY: Silvia Melton July 22, 2018 10:28 AM [facility] DIAGNOSTIC BLAKE Observed: 07/22/2018 Status: F Source: [place] 10:14 AM [facility] REPOSITORY * * *Final Report* * * DATE OF EXAM: Jul 22 2018 10:14AM [facility] 0620 - [facility] DIAGNOSTIC BLAKE / PROCEDURE REASON: Abnormal mammogram * * * * Physician Interpretation * * * * RESULT: #[id number] - [facility] DIAGNOSTIC BLAKE BILATERAL DIGITAL DIAGNOSTIC MAMMOGRAM WITH CAD: 07/22/2018 HISTORY: Bilateral Diagnostic Mammogram;Call Back/Abnormal Mammogram. RESULT: TECHNIQUE: The study was acquired using full field digital technology and interpreted from soft copy. Current study was also evaluated with a Computer Aided Detection (CAD). Comparison is made to exam dated: 07/08/2018 mammogram - [facility]. There are scattered fibroglandular elements in both breasts. Additional imaging reveals area of interest in the left breast on prior exam is not reproduced and presumably represents superimposed breast tissue. There is a 1 cm oval equal density focal asymmetry with a macrolobulated margin in the right breast at 10 o'clock posterior depth. No other significant masses, calcifications, or other findings are seen in either breast. IMPRESSION: PROBABLY BENIGN - SHORT TERM INTERVAL FOLLOW-UP RECOMMENDED The 1 cm oval equal density focal asymmetry in the right breast resembles a lymph node and is probably benign. A follow-up mammogram and an ultrasound in 6 months is recommended to demonstrate stability. Siobhan rangel/tory:07/22/2018 11:10:21 Medical Lab Tech Instructor: Silvia MELTON(R)(M), [facility] letter sent: # Mo FU Mammogram BI-RADS: 3 Probably benign finding - short term interval follow-up recommended Multiple national specialty organizations have released breast cancer screening guidelines for women at average risk for developing breast cancer - guidelines that are based on both evidence and opinion, yet differ on when to start and how often to screen for breast cancer. With representation from Breast Imaging, Internal Medicine, Women's Health, Family Medicine, and Medical/Surgical Oncology, the [facility] has carefully reviewed the data and reached the following consensus: 1) All women should engage in shared decision-making with their providers to decide when to start and how often to screen; 2) All women should have the opportunity to start screening mammography at age 40; 3) For women ages 45-55, we recommend annual screening mammograms; 4) For women ages 55 and over, we support both the transition from an annual to a biennial interval if this aligns more with patient's values and preferences, or continuation with annual screening; 5) All women should discuss with their providers when to stop screening mammograms. Adjunct Professor Of English: Tory Transcribe Date/Time: Jul 22 2018 9:56A Dictated by: SIOBHAN GEORGE MD This examination was interpreted and the report reviewed and electronically signed by: SIOBHAN GEORGE MD on Jul 22 2018 11:10AM EST [id number] [facility] Observed: 07/22/2018 Status: COMPLETED Source: [place] 12:00 AM [facility] REPOSITORY Letter Text [address] [phone] 07/22/2018 To Whom It May Concern: This is to confirm that Kizzy Bates had an appointment and was seen at the [facility] in the Department of PUBLIC HEALTH EDUCATOR by Tere Pimentel MD on 07/22/2018. Sincerely, Tere Pimentel MD CNCO Observed: 07/22/2018 Status: COMPLETED Source: [place] 12:00 AM [facility] REPOSITORY Letter Text [address] [address] 07/22/2018 To Whom It May Concern: This is to confirm that Kizzy Bates had an appointment and was seen at the [facility] in the Department of PUBLIC HEALTH EDUCATOR by Tere Pimentel MD on 07/22/2018. Loyd Jana accompanied Patient Sincerely, Tere Pimentel MD PROGRESS Observed: 07/16/2018 Status: COMPLETED Source: [place] 10:15 AM [facility] REPOSITORY HNO ID: [id number] Author: Gloria Peterson Psr Service: (none) Author Type: (none) Type: Progress Notes Filed: 07/16/2018 10:15 AM Note Text: Pap logged and normal pap letter mailed to patient. Gloria Tucker Kristen Psr CNCO Observed: 07/08/2018 Status: COMPLETED Source: [place] 9:56 AM [facility] REPOSITORY HNO ID: [id number] Author: Mammography Coordinator Service: (none) Author Type: Physician Type: Letter Filed: 07/09/2018 11:31 PM Note Text: July 08, 2018 PID: [id number] Kizzy Bates [address] [place] [address] Dear Ms. Bates, Your recent breast imaging exam on 07/08/2018 showed a possible finding that requires additional imaging studies for a complete evaluation. Most such findings are probably benign (not cancer). Please call [phone] or [phone] to schedule an appointment for your additional imaging if you have not already done so. Your breast images and report will be kept on file here as part of your permanent medical record and are available for your continuing care. Thank you for allowing us to help in meeting your health care needs. Sincerely, Dr. Che Interpreting Radiologist [facility] (Additional imaging) CBC Collected: 07/08/2018 Status: F Source: [place] 9:55 AM [facility] REPOSITORY TYPE CODE TESTS RESULT OUT OF REFERENCE UNITS RANGE LAB WBC 3.70-11.00 k/uL WBC 8.13 LAB RBC 3.90-5.20 m/uL RBC 4.64 LAB HGB 11.5-15.5 g/dL Hemoglobin 12.9 LAB HCT 36.0-46.0 % Hematocrit 40.0 LAB MCV 80.0-100.0 fL MCV 86.2 LAB MCH 26.0-34.0 pG MCH 27.8 LAB MCHC 30.5-36.0 g/dL MCHC 32.3 LAB RDWCV 11.5-15.0 % RDW-CV 14.1 LAB PLTCT 150-400 k/uL Platelet Count 270 LAB MPV 9.0-12.7 fL MPV 9.8 LAB ABSNUC <0.01 k/uL Absolute nRBC <0.01 Performed By: #### CBC, TSH #### [facility] [address] [place], [place] [address] TSH Collected: 07/08/2018 Status: F Source: [place] 9:55 AM [facility] REPOSITORY TYPE CODE TESTS RESULT OUT OF RANGE REFERENCE UNITS LAB TSH 0.400-5.500 uU/mL TSH 1.580 Result Comment: If the patient is , TSH reference range varies by gestational period: First Trimester 0.100-2.500 uU/mL Second Trimester 0.200-3.000 uU/mL Third Trimester 0.300-3.000 uU/mL References: 1. Su L, Shanti M, Gilmer EK, et al. Management of Thyroid Dysfunction during and : An Endocrine Society Clinical Practice Guideline. J Clin Endocrinol Metab, 2012:97:1447-6919. 2. Alfa NEVAREZ. Overview of thyroid disease in . UpToDate. 2016. Accessed on March 22, 2016. Performed By: #### CBC, TSH #### [facility] [address] [place], [place] [address] CLAI SCREENING Observed: 07/08/2018 Status: F Source: [place] 9:39 AM [facility] REPOSITORY * * *Final Report* * * DATE OF EXAM: Jul 08 2018 9:39AM WOW [id number] - [facility] SCREENING / PROCEDURE REASON: Encounter for screening mammogram for breast cancer * * * * Physician Interpretation * * * * RESULT: #[id number] - [facility] SCREENING BILATERAL DIGITAL SCREENING MAMMOGRAM WITH CAD: 07/08/2018 HISTORY: Encounter For Screening Mammogram For Breast Cancer /patient reports NO breast symptoms /baseline mammogram. RESULT: TECHNIQUE: The study was acquired using full field digital technology and interpreted from soft copy. Current study was also evaluated with a Computer Aided Detection (CAD). No prior exams were available for comparison. There are scattered fibroglandular elements in both breasts. There are multiple focal asymmetries in the right breast upper outer aspect posterior depth. There is a focal asymmetry in the left breast upper outer aspect posterior depth. No other significant masses or calcifications are seen in either breast. IMPRESSION: INCOMPLETE: NEEDS ADDITIONAL IMAGING EVALUATION The multiple focal asymmetries in the right breast upper outer aspect posterior depth are indeterminate. Additional views are recommended. The focal asymmetry in the left breast upper outer aspect posterior depth is indeterminate. Additional views are recommended. Pili Che M.D., cp/tory:07/08/2018 09:56:17 Medical Lab Tech Instructor: Saadia LOVELL)(Deven), [facility] letter sent: Additional Imaging Needed Mammogram BI-RADS: 0 Incomplete: needs additional imaging evaluation If this report indicates you need additional imaging, and it has NOT yet been performed, please call , to schedule. We sincerely thank you for choosing the [facility] for your breast imaging needs. Multiple national specialty organizations have released breast cancer screening guidelines for women at average risk for developing breast cancer - guidelines that are based on both evidence and opinion, yet differ on when to start and how often to screen for breast cancer. With representation from Breast Imaging, Internal Medicine, Women's Health, Family Medicine, and Medical/Surgical Oncology, the [facility] has carefully reviewed the data and reached the following consensus: 1) All women should engage in shared decision-making with their providers to decide when to start and how often to screen; 2) All women should have the opportunity to start screening mammography at age 40; 3) For women ages 45-55, we recommend annual screening mammograms; 4) For women ages 55 and over, we support both the transition from an annual to a biennial interval if this aligns more with patient's values and preferences, or continuation with annual screening; 5) All women should discuss with their providers when to stop screening mammograms. Adjunct Professor Of English: Tory Transcribe Date/Time: Jul 08 2018 9:19A Dictated by: PILI CHE MD This examination was interpreted and the report reviewed and electronically signed by: PILI CHE MD on Jul 08 2018 9:56AM EST [id number] PROGRESS Observed: 07/08/2018 Status: COMPLETED Source: [place] 9:19 AM [facility] REPOSITORY HNO ID: [id number] Author: Chante Melton Service: (none) Author Type: (none) Type: Progress Notes Filed: 07/08/2018 9:41 AM Note Text: Radiology Service Progress Note PATIENT NAME: Kizzy Bates DATE OF SERVICE: July 08, 2018 TIME: 9:19 AM PATIENT IDENTITY VERIFICATION COMPLETED USING TWO (2) METHODS: Patient confirmed name verbally and Date of . PATIENT GENDER DATA: Female. status: : No status: NO. PATIENT RELEVANT IMPLANT DATA REVIEWED: Not Applicable RADIOLOGY DEPARTMENT: [facility] mammogram PERIPHERAL IV DATA: Not applicable SIGNED BY: Chante Melton July 08, 2018 9:19 AM HPV W/GENOTYPE Collected: 07/08/2018 Status: F Source: [place] 9:04 AM [facility] REPOSITORY TYPE CODE TESTS RESULT OUT OF REFERENCE UNITS RANGE LAB HPVT16 HPV HighRisk Negative for Type 16 HPV DNA high risk type 16 by PCR. LAB HPVT18 HPV HighRisk Negative for Type 18 HPV DNA high risk type 18 by PCR. LAB HPVHRO HPV HighRisk Negative for Other HPV DNA high risk types: 31,33,35,39,45 ,51,52,56,58,5 9,66,68 by PCR. Result Comment: This test was developed and its performance characteristics determined by [facility]'s Raji Junior [facility] [place] ([facility]). It has not been cleared or approved by the FDA. -[facility] is regulated under CLIA as qualified to perform high-complexity testing. This test is used for clinical purposes. It should not be regarded as inv estigational or for research. Performed By: #### HPVHRR #### [facility] [address] [place], [place] [address] CYTOLOGY Observed: 07/08/2018 Status: C Source: [place] 9:04 AM [facility] REPOSITORY ADDITIONAL PROCEDURES PRESENT Specimen originated from [facility] Specimen #: [id number] Submitting Physician: GLORIA MAJOR CNP SPECIMEN SUBMITTED A: CERVICAL, DIAGNOSTIC, FLUID FINAL DIAGNOSIS A. CERVICAL, DIAGNOSTIC, FLUID Satisfactory for interpretation. Negative for intraepithelial lesion or malignancy. This specimen has been analyzed by the ThinPrep Imaging System, an automated imaging and review system, which assists the laboratory in evaluating cells on ThinPrep Pap tests. Following automated imaging, selected jansen from every slide are reviewed by a boiler engineer. LUIS MIGUEL Tena(ASCP) (Electronic Signature) ADDITIONAL PROCEDURE(S) HUMAN PAPILLOMA VIRUS Date Ordered: 07/09/2018 Date Reported: 07/10/2018 Procedure Results and Interpretation Negative for HPV DNA high risk type 16 by PCR. Negative for HPV DNA high risk type 18 by PCR. Negative for HPV DNA high risk types: 31,33,35,39,45,51,52,56,58,59,66,68 by PCR. This test was developed and its performance characteristics determined by [facility]'s Raji Pacheco [facility] [place] ([facility]). It has not been cleared or approved by the FDA. [facility] is regulated under CLIA as qualified to perform high-complexity testing. This test is used for clinical purposes. It should not be regarded as investigational or for research. CLINICAL DATA ABNORMAL BLEEDING - DESCRIBE, HPV Testing: Yes, automatic HPV patients over 30 Date of Last Menstrual Period: 06/17/2018 Menstrual History: ABNORMAL BLEEDIN MONTHS OF HMB, BASEBALL SIZE CLOTS STAINS A: CERVICAL, DIAGNOSTIC, FLUID THIN PREP VPK TEACHER Zahira Chaves M.D., Packing And Shipping Clerk Date of Report: 07/16/2018 Date of Procedure: 07/08/2018 Date of Receipt: 07/09/2018 Submitted by: GLORIA MAJOR CNP Location: [facility] Diagnostic interpretation performed at [facility], [address] [place] [address]. The Pap Smear is a screening test for cervical cancer. False negative results occur with all screening tests, emphasizing the need for rescreening at recommended intervals, and clinical correlation. PROGRESS Observed: 07/08/2018 Status: COMPLETED Source: [place] 8:40 AM [facility] REPOSITORY HNO ID: [id number] Author: Bernice Albarado Ma Service: (none) Author Type: (none) Type: Progress Notes Filed: 07/08/2018 9:24 AM Note Text: Would you like a collection officer present for your visit today? No Bernice Albarado Ma PROGRESS Observed: 07/08/2018 Status: COMPLETED Source: [place] 8:36 AM [facility] REPOSITORY HNO ID: [id number] Author: Gloria Major Service: (none) Author Type: Nurse Practitioner Type: Progress Notes Filed: 07/08/2018 9:24 AM Note Text: Kizzy Bates is a 42 year old who presents for her annual gynecologic exam with complaints - thinks had a left ovarian cyst that ruptured. Awoke at 0300 with cramping and labor type pain to LLQ over ovary, felt hot but no fever, nauseated. Pain continued until the next afternoon. Then had one very sharp pain and pain then eased. Had a similar episode many years ago that she attributed to a ruptured ovarian cyst but did have pain evaluated. Menses: Usually cycles every 28-30 days and 3-4 days of moderate flow. Last six months, menses have been shorter/longer with heavier flow every 15-45 days. Has been bleeding through clothing and passing clots from size of quarter to baseball. Cramping has not increased. Menses now lasts 7 days with 2.5 days of heavy bleeding. Contraception: BTL HPV vaccine: No Last Pap: 2014 normal HPV: negative History of abnormal pap: No Last mammogram: never Sexually active: Yes Patient concerns for STD exposure: No. Time with current partner: 15 years Pain with intercourse: No Postcoital bleeding: No Exercise: active lifestyle Diet: balanced Seatbelt use: Yes Obstetric History T2 L2 SAB0 TAB0 Ectopic0 Multiple0 Live Births0 PAST MEDICAL HISTORY Diagnosis Date - Leg fracture, left - Obesity - SVT (supraventricular tachycardia) (HCC) PAST SURGICAL HISTORY Procedure Laterality Date - CC ABLATION SVT PAT - DELIVERY ONLY 1998 , low transverse - DELIVERY ONLY 2007 , low transverse - TREAT LOWER LEG FRACTURE - TUBAL LIGATION HX 2014 laparoscopic FAMILY HISTORY Problem Relation Age of Onset - Breast Cancer Mother and Uterine - Cancer Maternal Grandmother Lung and Brain - Diabetes Father - COPD Maternal Grandmother SOCIAL HISTORY Social History Substance Use Topics - Smoking status: Never Smoker - Smokeless tobacco: Never Used - Alcohol use No REVIEW OF SYSTEMS Abdomen: No abdominal pain, nausea, vomiting, diarrhea, or constipation. No bloating, early satiety, indigestion, or increased flatulence. Bladder: No dysuria, gross hematuria, urinary frequency, urinary urgency, or incontinence. Breast: No breast lumps, nipple d/c, overlying skin changes, redness or skin retraction. Allergies and current medication updated:Yes EXAM: BP 118/70 Ht 5' 6 (1.68m) Wt 211 lb (95.7kg) LMP 06/17/2018 BMI 34.07 kg/(m2). GENERAL: pleasant, female in no apparent distress HEENT: Normocephalic, atraumatic, mucus membranes moist and no lesions NECK: Supple, full range of motion, no adenopathy and thyroid normal DERMATOLOGY: Normal, without lesions, non-icteric and non-hirsute BREAST: soft, non-tender, symmetric, no dominant mass, normal nipple-areolar complex, no lymphadenopathy and no nipple discharge CHEST: Normal inspiratory effort ABDOMEN: soft, no masses and Mild tenderness in LLQ PELVIC: external genitalia normal, normal Bartholin's glands, urethra, Wakeeney's glands, no vulvar lesions, no cervical lesions, good vaginal support, physiologic discharge present, normal appearing perineal body and perianal region, dark blood in vaginal vault and from cervical os. BIMANUAL: uterus normal size, shape and consistency, no adnexal masses and Mild tenderness LLQ RECTOVAGINAL: deferred. NEURO: alert and oriented x3,exam grossly non-focal EXTREMITIES: normal ASSESSMENT/PLAN: 1) Health maintenance: Pap/HPV done due to AUB Mammogram ordered. Nutrition, exercise and routine health maintenance exams reviewed. 2) Contraception: tubal ligation. Contraceptive options reviewed and information provided. 3) STD screening: Declined STD check. 4. Menorrhagia with irregular cycle - ICD9: 626.2, ICD10: N92.1 - six month history of irregular cycle and HVB - PELVIC US WHI - CBC - TSH BLD - PAP FLUID CERVICAL DIAGNOSTIC 5. Adnexal tenderness, left - ICD9: 625.9, ICD10: R10.2 - PELVIC US WHI 6) Follow up one year or sooner as needed. Will notify of test results. Gloria Major APRN.ELOISA DOOLEY Observed: 07/08/2018 Status: COMPLETED Source: [place] 8:30 AM [facility] REPOSITORY Office Visit (WOOB) KIZZY BATES ([id number]) 1975 F Date Time Provider Department 07/08/18 8:30 AM GLORIA MAJOR (ELOISA) [facility]OO[facility] During your visit today, we recorded the following information about you: Blood pressure Weight Height Last Period 118/70 95.7 kg 1.676 m 06/17/18 Gloria Major APRN.CNP 07/08/2018 9:24 AM Signed Kizzy Grieraw is a 42 year old who presents for her annual gynecologic exam with complaints - thinks had a left ovarian cyst that ruptured. Awoke at 0300 with cramping and labor type pain to LLQ over ovary, felt hot but no fever, nauseated. Pain continued until the next afternoon. Then had one very sharp pain and pain then eased. Had a similar episode many years ago that she attributed to a ruptured ovarian cyst but did have pain evaluated. Menses: Usually cycles every 28-30 days and 3-4 days of moderate flow. Last six months, menses have been shorter/longer with heavier flow every 15-45 days. Has been bleeding through clothing and passing clots from size of quarter to baseball. Cramping has not increased. Menses now lasts 7 days with 2.5 days of heavy bleeding. Contraception: BTL HPV vaccine: No Last Pap: 2014 normal HPV: negative History of abnormal pap: No Last mammogram: never Sexually active: Yes Patient concerns for STD exposure: No. Time with current partner: 15 years Pain with intercourse: No Postcoital bleeding: No Exercise: active lifestyle Diet: balanced Seatbelt use: Yes Obstetric History T2 L2 SAB0 TAB0 Ectopic0 Multiple0 Live Births0 PAST MEDICAL HISTORY Diagnosis Date - Leg fracture, left - Obesity - SVT (supraventricular tachycardia) (HCC) PAST SURGICAL HISTORY Procedure Laterality Date - CC ABLATION SVT PAT - DELIVERY ONLY 1998 , low transverse - DELIVERY ONLY 2007 , low transverse - TREAT LOWER LEG FRACTURE - TUBAL LIGATION HX 2014 laparoscopic FAMILY HISTORY Problem Relation Age of Onset - Breast Cancer Mother and Uterine - Cancer Maternal Grandmother Lung and Brain - Diabetes Father - COPD Maternal Grandmother SOCIAL HISTORY Social History Substance Use Topics - Smoking status: Never Smoker - Smokeless tobacco: Never Used - Alcohol use No REVIEW OF SYSTEMS Abdomen: No abdominal pain, nausea, vomiting, diarrhea, or constipation. No bloating, early satiety, indigestion, or increased flatulence. Bladder: No dysuria, gross hematuria, urinary frequency, urinary urgency, or incontinence. Breast: No breast lumps, nipple d/c, overlying skin changes, redness or skin retraction. Allergies and current medication updated:Yes EXAM: BP 118/70 Ht 5' 6 (1.68m) Wt 211 lb (95.7kg) LMP 06/17/2018 BMI 34.07 kg/(m2). GENERAL: pleasant, female in no apparent distress HEENT: Normocephalic, atraumatic, mucus membranes moist and no lesions NECK: Supple, full range of motion, no adenopathy and thyroid normal DERMATOLOGY: Normal, without lesions, non-icteric and non-hirsute BREAST: soft, non-tender, symmetric, no dominant mass, normal nipple-areolar complex, no lymphadenopathy and no nipple discharge CHEST: Normal inspiratory effort ABDOMEN: soft, no masses and Mild tenderness in LLQ PELVIC: external genitalia normal, normal Bartholin's glands, urethra, Wakeeney's glands, no vulvar lesions, no cervical lesions, good vaginal support, physiologic discharge present, normal appearing perineal body and perianal region, dark blood in vaginal vault and from cervical os. BIMANUAL: uterus normal size, shape and consistency, no adnexal masses and Mild tenderness LLQ RECTOVAGINAL: deferred. NEURO: alert and oriented x3,exam grossly non-focal EXTREMITIES: normal ASSESSMENT/PLAN: 1) Health maintenance: Pap/HPV done due to AUB Mammogram ordered. Nutrition, exercise and routine health maintenance exams reviewed. 2) Contraception: tubal ligation. Contraceptive options reviewed and information provided. 3) STD screening: Declined STD check. 4. Menorrhagia with irregular cycle - ICD9: 626.2, ICD10: N92.1 - six month history of irregular cycle and HVB - PELVIC US WHI - CBC - TSH BLD - PAP FLUID CERVICAL DIAGNOSTIC 5. Adnexal tenderness, left - ICD9: 625.9, ICD10: R10.2 - PELVIC US WHI 6) Follow up one year or sooner as needed. Will notify of test results. Gloria Major APRN.ELOISA Albarado Ma 07/08/2018 9:24 AM Signed Would you like a collection officer present for your visit today? No Bernice Peterson Psyue 07/16/2018 10:15 AM Signed Pap logged and normal pap letter mailed to patient. Gloria Bryantr Referring Provider: SELF [[id number]] Allergies As of Date: 07/08/2018 Noted Allergy Reaction LATEX 04/25/2015 2 - Rash PERCOCET (OXYCODONE-ACETAMINOPHEN)04/25/2015 2 - Rash 11 - Vomiting Date Reviewed: 07/08/2018 Reviewed by: Gloria Major - Fully Assessed Primary Visit Diagnosis:Encounter for gynecological examination (general) (routine) without abnormal findings [Z01.419] Other Visit Diagnoses:Encounter for screening mammogram for breast cancer [Z12.31] Menorrhagia with irregular cycle [N92.1] Adnexal tenderness, left [R10.2] Order(s):CALI SCREENING [[id number]] Order #: [id number] FUTURE PELVIC US WHI [[id number]] Order #: [id number]. #:[id number]: 1 CBC [SQCBC] Order #: [id number] FUTURE TSH BLD [SQTSH] Order #: [id number] FUTURE PAP FLUID CERVICAL DIAGNOSTIC [[id number]] Order #: [id number]. #[id number] HPV W/GENOTYPE [SQHPVHRR] Order #: [id number]. #:[id number] Problem List As Of Date 07/08/2018 Noted Resolved Constitutional obesity [E66.8] INVALID FOR* SVT (supraventricular tachycardia) (HCC) [I47.1]INVALID FOR* Medications Discontinued During This Encounter miSOPROStol (CYTOTEC) 200 mcg tablet 4 ta* 0 01/16/2017 07/08/2018 Sig: Take two tablets PO night before procedure and two tablets PO morning of procedure Patient not taking: Reported on 07/08/2018 Disc: Reason for discontinue is not on file. miSOPROStol (CYTOTEC) 200 mcg tablet 4 ta* 0 11/26/2016 07/08/2018 Sig: Take 2 pills the night before AND 2 pills the morning of the procedure - vaginally. Disc: Reason for discontinue is not on file. Disposition: Return in 1 year (on 07/08/2019) for Annual Exam. Follow-up and Disposition History Recorded Letter Text Gloria Major, [facility] [address] [place], [place] [address] Kizzy Bates [address] [facility] [address] 07/16/2018 [facility]: [id number] Dear Kizzy, We are pleased to inform you that your recent Pap Test was within normal limits. Because Pap tests are so effective in the early detection of cervical cancer, you are encouraged to continue having the test at regular intervals. You will be due for a 1 year Gynecological Exam after this date 07/08/2019. If you have any questions regarding the above information, do not hesitate to call our office at between the hours of 8:00 a.m. and 5:00 p.m. Sincerely, Gloria Major CNP Encounter Status:Closed by GLORIA MAJOR on 07/08/18 ALLERGIES ALLERGIES DATE TYPE / CODE NAME / CODE REACTION SEVERITY SOURCE 08/31/2018 Drug oxycodone/F00 Rash Unknown [facility] Allergy/4160 [id number]([facility] [address](SNOMED M) Repository CT) 08/31/2018 Drug latex/[id number] Rash Unknown [facility]4160 921[facility] [address](SNOMED Repository CT) 04/25/2015 DRUG LATEX RASH [facility] INGREDI/[address] [place] [address](SNOMED Repository CT) 04/25/2015 DRUG/[id number] OXYCODONE-[place] RASH [facility] 03(SNOMED TAMINOPHEN [address] [place] [address]) Repository ENCOUNTERS ENCOUNTERS ADMIT/DISCHARGE ACCOUNT ADMITTING ENCOUNTER LOCATION SOURCE NUMBER CLASS 09/16/2018/09/17/20 [id number] [place] Rep[place] 09/11/2018/09/14/20 [id number] Ambulatory [address] [place] Rep[place] 09/03/2018/09/04/20 [id number] Ambulatory [address] ing:SDCRoom: Repository MS212 08/14/2018/08/17/20 [id number] Ambulatory [address] [place] Repository 07/22/2018/07/23/20 [id number] Ambulatory [address] [place] Repository 07/22/2018/07/22/20 [id number] Ambulatory [address] [place] Repository 07/22/2018/07/22/20 [id number] Ambulatory [address] [place] Repository 07/09/2018/07/10/20 [id number] Ambulatory [address] [place] Repository 07/08/2018/07/08/20 [id number] Ambulatory [address] [place] Repository 07/08/2018/07/08/20 [id number] Ambulatory [address] [place] Repository 07/08/2018/07/09/20 [id number] Ambulatory [address] Repository PAYERS PAYERS ENCOUNTER GUARANTOR PAYER SUBSCRIBER SOURCE 09/03/2018 KIZZY [id number] Insurance:MEDICAL RANSHAWDOB: [facility]ly [facility] CUTNA DEANDRA [id number] [address]Jcu: Number: Repository [id number] () Date:[id number] [address] [address]LG: 09/03/2018 Secondary NOT GIVENVIDA Hardwick Insurance:SELF PAY [facility] Number: Effective Repository Date:2018-07-22
== END 2018-09-04 10:23 | disposition home or self-care (01) ==
LOC: SDC 10:19 → AC 10:22 → MS2 13:18
PROVIDERS: Referring Provider Obstetrics & Gynecology; Visit Provider Obstetrics & Gynecology
PROC: 0UT94ZZ Resection of Uterus, Percutaneous Endoscopic Approach (ICD-10-PCS; CPT 58571; principal; 2018-09-03 13:05)
DX: D25.1 Intramural leiomyoma of uterus (principal); D27.1 Benign neoplasm of left ovary; N72 Inflammatory disease of cervix uteri; N80.0 Endometriosis of uterus
CPT/HCPCS: 58571; 36415; 81025; 82962; 85027; 86850; 86900; 88307; 88313; J7050; J7120; J2405